=== PATIENT | female | born 1980 | race Caucasian/White ===

== ENCOUNTER 2017-07-29 15:59 | Day surgery (SDC) | payer BC ==
[2017-07-29 16:54] VITALS: BMI 26.6
[2017-07-29 18:13] LABS: FFN Internal QC Analyzer PASS (PASS); FFN Internal QC Cassette PASS (PASS); Fetal Fibronectin Negative (Negative)
--- NOTE | 2017-07-29 22:23 | PRG ---
OB ER COUNTER DATE OF SERVICE: 07/29/2017 PRIMARY OB: Emily Jaeger M.D. CHIEF COMPLAINT: Abdominal pains and discharge. HISTORY OF PRESENT ILLNESS: The patient is a 37-year-old G4, P2 female with an intrauterine pregnanc y at 30 weeks who is followed by Dr. Jaeger and partners while her primary OB, Dr. Arabella Lindsey is on maternity leave. Patient reports that she woke up this morning, feeling uterine contractions and had a mucousy discharge when she wipes, so came in for evaluation. She denies other contractions or michael nful and describes them as irritability. She reports that she has had an irritable uterus with this . She denies change in discharge apart from this one time episode of mucus. Denies interco urse, dehydration, history of urinary tract infections, or recent illness. She denies fever, fall, h eadache, chest pain, shortness of breath, nausea, vomiting, diarrhea, constipation, any new rashes, h ip or knee problems or muscle weakness, vaginal bleeding, urinary urgency. PAST MEDICAL HISTORY: Negative. PAST SURGICAL HISTORY: Foot surgery. ALLERGIES: No known drug allergies. MEDICATIONS: vitamins and 17-hydroxyprogesterone. OBSTETRIC HISTORY: She has had a 35-week delivery and a subsequent 41-week delivery. FAMILY HISTORY: Noncontributory. REVIEW OF SYSTEMS: Per HPI. PHYSICAL EXAMINATION: VITAL SIGNS: Blood pressure is 129/67, heart rate of 87, satting 100% on room air, temperature 98.5, and respiratory rate of 18. GENERAL: She appears to be in no acute distress. She is alert and oriented, cooperative and pleasan t to interact with. HEAD: Normocephalic, atraumatic. LUNGS: Clear to auscultation bilaterally. HEART: Regular rate and rhythm. ABDOMEN: Gravid, soft, nontender to palpation. EXTREMITIES: Nontender and nonedematous. GENITOURINARY: Vulva is without masses, lesions or erythema. No visible discharge. Vagina is moist . On speculum exam, she has a creamy discharge with mucus at the cervical os itself. fibronec tin and VPIII are collected at this time. There is no pooling. There is no odor. On bimanual exam, the cervix was closed. heart tracing performed for abdominal pains and . Baselines noted to be in the 130s w ith moderate long tern variability, positive accelerations, and no decelerations. The patient's stay approximately 2 hours. The tocometer did show irritability, which seemed to persist through her sta y. LABORATORY WORK: fibronectin was negative. VPIII is negative for yeast, Trichomonas, and bact erial vaginosis. ASSESSMENT AND PLAN: The patient is a 37-year-old G4, P2 female with an intrauterine at 30 weeks with uterine irritability and no signs of vaginal infection by VPIII and a negative fibr onectin. Reassurance has been given to the patient. We encouraged her to go home and take a warm sh ower and put her feet up and has been given labor precautions. Should she experience increas ing intensity of her contractions, bleeding, or leakage of fluid, patient is to return for evaluation . Otherwise, she is to follow up with her primary OB as scheduled.
== END 2017-07-29 19:00 | disposition home or self-care (01) ==
LOC: L&D/OP 15:59
PROVIDERS: ATTEND Family Medicine
DX: O99.89 Other specified diseases and conditions complicating pregnancy, childbirth and the puerperium (principal); R10.9 Unspecified abdominal pain; Z3A.30 30 weeks gestation of pregnancy; Z79.899 Other long term (current) drug therapy; Z98.890 Other specified postprocedural states; Z87.891 Personal history of nicotine dependence
CPT/HCPCS: 82731; 87480; 87510; 87660; 99284

== ENCOUNTER 2017-08-22 14:35 | Day surgery (SDC) | payer BC | END 2017-08-22 15:03 | disposition home or self-care (01) | LOC: L&D/OP 14:35 | PROVIDERS: ATTEND Family Medicine | DX: O36.90X0 Maternal care for fetal problem, unspecified, unspecified trimester, not applicable or unspecified (principal); Z3A.00 Weeks of gestation of pregnancy not specified | CPT/HCPCS: 96372; 99281 ==

== ENCOUNTER 2017-10-03 19:36 | Inpatient (IN) | payer BC, SELFPAY ==
[2017-10-03] MEDS ORDERED: LR / Pitocin 40 units/1000 ml 1,000 ML ONE (19:52)
--- NOTE | 2017-10-03 20:03 | PDOC.EVN ---
Event Note - Event Note Event Note: OB house calls nurse practitioner: Called for possible delivery in Room 11 in ED. Enroute to ED in [facility], I was informed by Resident house calls nurse practitioner (FM) that she was C /C/0 station and was going to move to L&D. Patient delivered about 1 minute later in ED as I was in hallway to location. Patient of Dr Lindsey, notified. Patient delivered before I arrived. Delivered at approx 194, baby vigorous without complication. Delivered by ED staff and Resident. I arrived to find patient stable and well with placenta insitu. Dr Lindsey called and requested we await her arrival to complete third stage as not actively bleeding as stable. From my first call regarding the patient to delivery: approx 3-4 minutes. Patient now (@2001) up to L&D with dr Lindsey. DX: S/P uncomplicated delivery
[2017-10-03] MEDS ORDERED: Lidocaine 1% (PF) 30 ML VIAL ONE (20:06)
[2017-10-03] MEDS ORDERED: Oxytocin 10 UNITS/ML VIAL ONE (20:15)
[2017-10-03] MEDS ORDERED: Acetaminophen/Codeine 30-300mg Tablet PO PRN ×2 (20:36)
[2017-10-03] MEDS ORDERED: Bisacodyl 10 MG SUPP PR PRN (20:36)
[2017-10-03] MEDS ORDERED: Milk Of Magnesia 30 ML UDCUP PO PRN (20:36)
[2017-10-03] MEDS ORDERED: Benzocaine/Menthol 20-0.5% 60 ML CAN TOP PRN (20:36)
[2017-10-03] MEDS ORDERED: Preparation H Ointment 28 GM TUBE PR PRN (20:36)
[2017-10-03] MEDS ORDERED: diphenhydrAMINE 25 MG CAP PO PRN (20:36)
[2017-10-03] MEDS ORDERED: Lanolin Ointment 7 GM TUBE TOP PRN (20:36)
[2017-10-03] MEDS ORDERED: Ondansetron HCl/PF 4 MG/2 ML Vial IVP PRN (20:36)
[2017-10-03] MEDS ORDERED: LR / Pitocin 40 units/1000 ml 1,000 ML IV SCH (20:45)
[2017-10-03] MEDS: Ibuprofen 800 MG TAB PO SCH (20:50)
[2017-10-03 20:58] LABS: Hemoglobin 12.6 g/dL (12.0-16.0)
[2017-10-03 21:41] VITALS: BMI 28.5
--- NOTE | 2017-10-03 22:59 | OP ---
DATE OF DELIVERY: 10/03/2017 PREOPERATIVE DIAGNOSIS: Term intrauterine . POSTOPERATIVE DIAGNOSES: Term intrauterine . PROCEDURE PERFORMED: Normal spontaneous vaginal delivery by the ER physician. I was present for del perry of the placenta. TOTAL ESTIMATED BLOOD LOSS: 350 mL BRIEF DELIVERY SUMMARY: This is a G3, now P3 who presented in active labor. She arrived to the [facility] department, complete, complete and 0 station. While they were attempting to prepare her for tr ansfer up to labor and delivery, she felt an overwhelming urge to push. She pushed twice and deliver ed a live female infant. Please see the ER notes for details of the 's delivery as I was not p resent at that time, I arrived shortly after the delivery of the infant and delivered the placenta sp ontaneously and intact with a 3-vessel umbilical cord. Uterine fundus was firm following evacuation of the placenta and the patient was deemed stable to be moved upstairs to labor and delivery. We mov ed her to the Labor and delivery unit where I was able to better inspect the vagina and she did have a first degree perineal laceration as well as a left labial laceration. During the transport, her bl eeding had also picked up slightly. This was resolved with bimanual massage and evacuation of clot. We did administer Pitocin IM and then turned our attention to the laceration repair. Laceration was repaired with 2-0 Vicryl suture in standard running fashion under local anesthesia with excellent he mostasis. Mom and baby were left with the nurse in excellent condition, .
[2017-10-04] MEDS: Docusate Calcium (SURFAK) 240 MG CAP PO SCH ×2 (02:21→09:42)
[2017-10-04] MEDS: Ibuprofen 800 MG TAB PO SCH ×2 (04:44→15:23)
--- NOTE | 2017-10-04 08:59 | PDOC.PP ---
Post Progress Note Post Day #: 1 Subjective: Doing well, no c/o, well PO intake tolerated: yes Flatus: yes Ambulation: yes Vital Signs (12 hours) Temp Pulse Resp BP 10/04/17 07:50 99.0 F 60 16 111/60 10/04/17 04:40 98.2 F 64 20 118/62 10/04/17 00:30 98.8 F 63 126/70 10/03/17 23:35 98.8 F 67 20 121/65 Weight Weight 166 lb - Physical Examination General: NAD Cardiovascular: no m/r/g, RRR Respiratory: clear to auscultation bilaterally, non-labored breathing Abdominal: + bowel sounds, lochia, no distention, appropriately TTP Result Diagrams: 10/03/17 20:46 Additional Labs: Post Labs Blood Type A POSITIVE 10/03/17 20:41 (1) Precipitous delivery Code(s): O62.3 - PRECIPITATE LABOR Status: Acute - Assessment/Plan Doing well PP day #1, no c/o, well. D/C home today.
[2017-10-04] MEDS ORDERED: Adacel (T-DAP) 0.5 ML VIAL IM ONE (09:00)
[2017-10-04] MEDS ORDERED: Varicella virus, LIVE 0.5 ML VIAL SC ONE (09:00)
[2017-10-04] MEDS ORDERED: Measles/Mumps/Rubella 10 MCG/0.5 ML VIAL SC ONE (09:00)
[2017-10-04] MEDS ORDERED: Prenatal Vitamin 1 TAB PO SCH (09:00)
[2017-10-04] MEDS: Ferrous Sulfate 325 MG TAB PO SCH ×2 (09:42→18:29)
[2017-10-04 10:17] LABS: Hep B Surf Ag Non-Reactive S/CO (NonReactive)
[2017-10-04 21:16] VITALS: BP 108/66; TEMP 98.6
== END 2017-10-04 21:40 | disposition home or self-care (01) | DRG 775 ==
LOC: INTOOBSV 19:36 → L&D 19:36 → ERS 19:36 → OBSVTOIN 19:36 → UNDOADMOB 19:36 → L&D 19:50 → INTOOBSV 19:50 → UNDOADMOB 19:50 → L&D 20:11 → UNDOADMOB 20:11 → 3SW 23:35 → L&D 23:35 → OBSVTOIN 10-04 08:02 → INTOOBSV 10-04 08:02 → UNDODISIN 10-04 21:40 → ERS 10-05 02:15 → EDSTATUS 10-05 02:15
PROVIDERS: ADMIT Family Medicine; ATTEND Family Medicine
PROC: 10E0XZZ Delivery of Products of Conception, External Approach (ICD-10-PCS; principal; 2017-10-03)
PROC: 0HQ9XZZ Repair Perineum Skin, External Approach (ICD-10-PCS; 2017-10-03)
PROC: 0UQMXZZ Repair Vulva, External Approach (ICD-10-PCS; 2017-10-03)
DX: O62.3 Precipitate labor (principal); O70.0 First degree perineal laceration during delivery; Z37.0 Single live birth; Z3A.39 39 weeks gestation of pregnancy
CPT/HCPCS: 36415; 85014; 85018; 87340; J2001; J2590

== ENCOUNTER 2020-05-31 14:13 | Outpatient (CLI) | payer BC ==
--- NOTE | 2020-05-31 15:07 | RAD ---
XR Foot Rt 3 View STANDARD History: Injury Comparison: None. Findings: Spiral fracture without significant displacement of the middle toe proximal phalanx with no definite articular surface involvement. Impression: Practically nondisplaced spiral fracture proximal phalanx middle toe.
== END 2020-05-31 14:14 | disposition home or self-care (01) ==
LOC: SCSRAD 14:13
PROVIDERS: ATTEND Family Medicine
DX: S92.301A Fracture of unspecified metatarsal bone(s), right foot, initial encounter for closed fracture (principal); M79.671 Pain in right foot; S92.514A Nondisplaced fracture of proximal phalanx of right lesser toe(s), initial encounter for closed fracture